=== PATIENT | male | born 1955 | race Caucasian/White ===

== ENCOUNTER 2025-03-17 10:39 | Emergency (ER) | payer MEDICARE, SELFPAY ==
[2025-03-17 10:54] VITALS: BP 132/90
--- NOTE | 2025-03-17 14:25 | ED.GENMED ---
History of Present Illness
General
Chief Complaint: Fall
Source: patient
Exam Limitations: none
Time Seen by Provider: 03/17/25 11:09
Nursing documentation reviewed up to this point in time: agreed with
History of Present Illness
History of Present Illness:
The patient is a 69-year-old male w h/o COPD, who presents with pain due to suspected rib fractures sustained 5 days ago after falling backwards in his yard onto pile of firewood. Since the injury, the patient has experienced significant discomfort,
exacerbated by movement, coughing and breathing. Has been lying on the couch for relief. The patient is a smoker. For pain management, the patient has been taking ibuprofen, which has provided minimal relief. Additionally, the patient reports a
dental abscess that began a couple of days ago, causing significant discomfort and sleep disturbances. The patient is currently seeking pain relief and antibiotic treatment for the abscess.
Past History
Past History
ED Past Medical History: COPD (Emphysema) and Other (Cardiomyopathy, Chronic cough)
ED Past Surgical History: None
Social History
Tobacco: Smoker
Alcohol: Occasional
Drug: None
Personal:
Living: alone
Employment: Employed
Family History
Family History: Other (Noncontributory)
Review of Systems
Review of Systems
Allergies reviewed?: Yes
All Other Systems: ROS reviewed and negative except as documented in HPI and ROS
Constitutional: Denies fever
EENT: Reports mouth pain (L upper gum)
Respiratory: Reports trouble breathing (hurts to breathe)
Cardiac: Denies chest pain
ABD/GI: Reports vomiting; Denies abdominal pain
Musculoskeletal: Reports other (right rib pain)
Skin: Reports no symptoms
Neurological: Reports no symptoms
Phy Exam
Physical Exam
Physical Exam:
GENERAL: No acute distress. A&Ox3.
CONSTITUTIONAL: Afebrile.
EYES: clear, conjunctivae normal
ENMT: moist mucus membranes, Pharynx nl, very poor dentition with multiple missing teeth and multiple cavities. Tender along left upper buccal mucosal line, no palpable abscess, no drainage. No lymphadenopathy
RESPIRATORY: Regular respirations, nonlabored, lungs clear.
CARDIOVASCULAR: Regular rate and rhythm, no murmurs, no rubs.
GI: Soft, nontender, normal BS
MUSCULOSKELETAL: Tender right lateral mid rib area, no swelling or discoloration here. Moves with ease. Well perfused.
SKIN: Warm, dry, pink
PSYCH: Normal mood and affect. Well kept, interactive and appropriate
NEUROLOGIC: Awake, alert and oriented. No focal neurological deficits
Course
Orders/Labs/Results
Orders:
Orders
03/17/25 11:02
Ribs, Giovani 4 View W/PA Chest [CR Ribs-giovani 4 Vw W/pa Chest] Urgent
Comment:
Reason For Exam: pain after fall
Vital Signs
Initial and Last Documented VS:
Initial Vital Signs
Temp Pulse Resp BP
98.4 F 84 16 132/90
03/17/25 10:54 03/17/25 10:54 03/17/25 10:54 03/17/25 10:54
Last Documented Vital Signs
Temp Pulse Resp BP
98.4 F 84 16 132/90
03/17/25 10:54 03/17/25 10:54 03/17/25 10:54 03/17/25 10:54
MDM/Problems Addressed
Differential Diagnosis Includes:
The Differential Diagnosis includes, in no particular order and is not limited to:
1. Rib fractures
2. Muscle strain
3. Costochondritis
4. Pneumothorax
5. Pleural effusion
6. Pulmonary contusion
7. Dental abscess
8. Gingivitis
MDM/Problems Addressed:
The patient is a 69-year-old male, hx COPD who presents with pain due to suspected rib fractures sustained 5 days ago after falling backwards in his yard onto pile of firewood. Since the injury, the patient has experienced significant discomfort,
exacerbated by movement, coughing and breathing. Has been lying on the couch for relief. The patient is a smoker. For pain management, the patient has been taking ibuprofen, which has provided minimal relief. Additionally, the patient reports a
dental abscess that began a couple of days ago, causing significant discomfort and sleep disturbances. The patient is currently seeking pain relief and antibiotic treatment for the abscess.
Rib xray initially read by this examiner, minimally displaced fractures of right ribs 9 and 10, no pneumothorax, no hemothorax.
Radiology read: IMPRESSION: Fractures of the right ninth and 10th ribs.
Deformity of the left anterolateral 10th rib, suspicious for acute fracture and please correlate with localized symptoms on the left as well.
No evidence for pneumothorax or hemothorax.
No left rib tenderness
Plan:
- Prescribe antibiotics for the dental abscess.
- Prescribe a short course of Vicodin (hydrocodone/acetaminophen) for pain management.
- Advise continued use of ibuprofen or acetaminophen for pain.
- Recommend supportive care for rib fractures, including splinting with a towel or small pillow during activities.
Referred to [facility]
Chronic conditions affecting care: COPD
*Pulse Oximetry
SaO2: 95
Oxygen Mode of Delivery: Room air
Patient hypoxic: no
*Critical Care Note
Total Time (30-74mins, 75-104mins- exclusive of procedures): Not Applicable
ED Attending Note
-
Portions of this chart may have been created with voice recognition software.� Occasional wrong word or��sound alike� substitutions may have occurred due to the inherent limitations of voice recognition software.
Discharge Plan
Departure
Patient Disposition: Home (Routine Discharge)
Date of Disposition: 03/17/25
Time of Disposition: 12:04
Patient with high blood pressure during this ER visit?: No
Condition: Good
Discharge Problem:
Fall from slip, trip, or stumble, Fracture, ribs, Tooth pain
Instructions: Dental pain - ED discharge instructions, Rib fracture or bruised rib - ED discharge instructions, Dental abscess - ED discharge instructions
Prescriptions:
New
hydrocodone-acetaminophen 5-300 mg tablet
1 tab PO Q6H PRN (Reason: Pain) Qty: 10 0RF
amoxicillin 500 mg tablet
500 mg PO TID Qty: 21 0RF
No Action
metoprolol succinate 50 mg Tablet Extended Release 24 Hr
50 mg PO DAILY Qty: 30 1RF
Combivent Respimat 20-100 mcg/actuation Mist
1 puff inhalation R BID Qty: 4 1RF
Eliquis 5 mg Tablet
5 mg PO BID Qty: 60 1RF
furosemide 40 mg Tablet
40 mg PO DAILY Qty: 30 1RF
aspirin 81 mg Tablet,Chewable
81 mg PO DAILY Qty: 100 0RF
nicotine 14 mg/24 hr Patch 24 Hour
14 mg transdermal DAILY Qty: 28 0RF
lisinopril 5 mg Tablet
5 mg PO DAILY Qty: 30 1RF
albuterol sulfate 90 mcg/actuation HFA aerosol inhaler
1 puff inhalation Q4H PRN (Reason: shortness of breath or wheezing) Qty: 8.5 0RF
atorvastatin 40 MG tablet
40 mg PO QPM Qty: 30 1RF
metaxalone 400 mg tablet
800 mg PO TID PRN (Reason: muscle pain) Qty: 14 0RF
Referrals:
NONE,* [Family Provider, Internal Medicine]
Activity Restrictions/Additional Instructions:
As we discussed, I sent a prescription to your pharmacy for Vicodin which is hydrocodone narcotic to use as needed for pain. Use ibuprofen 600 mg, with food, every 6 hours for mild to moderate pain and use a Vicodin if needed for worse pain.
Make next available appointment to see a dentist
Try [facility]
Interventions
Interventions:
*Risk Screen - Suicide Last Done: 03/17/25 11:04
*General Assessment Last Done: 03/17/25 11:04
*Neglect/Abuse Screening Last Done: 03/17/25 11:04
*ED- Fall Risk Assessment Last Done: 03/17/25 11:04
*ED COVID-19 Vaccine History Last Done: 03/17/25 10:54
*Nursing Disposition Last Done: 03/17/25 12:19
ED-Musculoskeletal Assessment Last Done: 03/17/25 11:04
ED- Neurological Assessment Last Done: 03/17/25 11:04
ED-Skin Assessment Last Done: 03/17/25 11:04
Discharge Date and Time
Discharge Date/Time: 03/17/25 12:19
Print Language: CONGOLESE
== END 2025-03-17 12:19 | disposition home or self-care (01) ==
LOC: EMR 10:39
PROVIDERS: EMERGENCY PHYSICIAN Emergency Medicine
DX: S22.41XA Multiple fractures of ribs, right side, initial encounter for closed fracture (principal); K04.7 Periapical abscess without sinus; R11.10 Vomiting, unspecified; W01.198A Fall on same level from slipping, tripping and stumbling with subsequent striking against other object, initial encounter; Y92.007 Garden or yard of unspecified non-institutional (private) residence as the place of occurrence of the external cause; J43.9 Emphysema, unspecified; I42.9 Cardiomyopathy, unspecified; F17.200 Nicotine dependence, unspecified, uncomplicated; Z79.01 Long term (current) use of anticoagulants
CPT/HCPCS: 99283; 71111